=== PATIENT | male | born 1960 | race Hispanic/Latino ===

== ENCOUNTER → 2019-07-30 | Day surgery (SDC) | payer OTHER ==
[2019-07-28 16:15] LABS: BASOPHILS # (AUTO) 0.1 (0.0-0.1); BASOPHILS % 0.6 % (0.0-1.0); EOSINOPHILS # (AUTO) 0.1 (0.0-0.4); EOSINOPHILS % 0.7 % (0.0-6.0); HEMATOCRIT 42.5 % (38.2-49.6); HEMOGLOBIN 13.9 g/dL (14.0-18.0); LYMPHOCYTES % 23.5 % (18.0-39.1); MEAN CORPUSCULAR HEMOGLOBIN 30.2 pg (28-32); MEAN CORPUSCULAR HGB CONC 32.7 g/dL (31-35); MEAN CORPUSCULAR VOLUME 92.2 fL (81-99); MONOCYTES % 11.9 % (4.4-11.3); NEUTROPHILS # (AUTO) 5.4 (2.1-6.9); PLATELET COUNT 170 x10e3/uL (140-360); RED BLOOD COUNT 4.61 x10e6/uL (4.3-5.7); RED CELL DISTRIBUTION WIDTH 13.3 % (11.7-14.4)
[2019-07-28 16:26] LABS: INR 0.91; PROTHROMBIN TIME 12.7 seconds (11.9-14.5)
[2019-07-28 16:32] LABS: ALANINE AMINOTRANSFERASE 18 IU/L (0-55); ALKALINE PHOSPHATASE 101 IU/L (40-150); ANION GAP 13.9 mmol/L (8-16); BLOOD UREA NITROGEN 13 mg/dL (7-26); BUN/CREATININE RATIO 13 (6-25); CALCIUM 10.4 mg/dL (8.4-10.2); CARBON DIOXIDE 26 mmol/L (22-29); CHLORIDE 100 mmol/L (98-107); CREATININE, SERUM 0.99 mg/dL (0.72-1.25); EST GLOMERULAR FILTRATION RATE > 60 ML/MIN (60-); GLUCOSE 106 mg/dL (74-118); POTASSIUM 3.9 mmol/L (3.5-5.1); SODIUM 136 mmol/L (136-145)
[~2019-07-30] VITALS: Ht 157.5 cm; Wt 62.6 kg
[2019-07-30] VITALS (7 sets, daily range): BP systolic 126–150; BP diastolic 67–91
[~2019-07-30] MED LIST: ETODOLAC400 MG PO; FENTANYL CITRATE/PF 100MCG/2 ML INJ ONE; HEPARIN SOD (PORCINE) 1000 UNIT/ML 30ML ONE; HEPARIN SOD/SOD CHLORIDE 2,000 ML ONE; IOPAMIDOL 370 MG/ML 200 ML INFUS..BTL INJ ONE; LEFLUNOMIDE20 MG PO; LIDOCAINE HCL 2% LOCAL 20 ML VIAL ONE; METHYLPREDNISOLO4 MG PO; MIDAZOLAM HCL 2 MG/2 ML VIAL ONE; NITROGLYCERIN/D5W 200 MCG/ML 250 ML ONE; VERAPAMIL HCL 2.5 MG/ML 2 ML VIAL ONE
--- OUTSIDE RECORDS SUMMARY | 2019-07-30 06:27 | XMS REPORT | Summary of Care ---
Author Author [facility] Organization [facility] Address Unknown Phone Unavailable Care Team Providers Care [employer] Processing Supervisor Name Role Phone PCP Unavailable Reason for Referral * Radiology Services (Routine) Referred By Contact Referred To Contact Status Reason Specialty Diagnoses / Procedures Bridger Ruvalcaba MD [address] [id number] General Imaging [address] [place] [phone] Pending Radiology Diagnoses Rheumatoid arthritis with positive rheumatoid factor, involving unspecified site (HCCode) Long-term use of immunosuppressant medication 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 P rocedures DEXA BONE DENSITY SPINE AND HIP * Radiology Services (Routine) Referred By Contact Referred To Contact Status Reason Specialty Diagnoses / Procedures Bridger Ruvalcaba MD [facility] [address] [address] General Imaging [address] [place] [phone] Pending Radiology Diagnoses Rheumatoid arthritis with positive rheumatoid factor, involving unspecified site (HCCode) Long-term use of immunosuppressant medication P rocedures XR FOOT BILATERAL (COMPLETE) * Radiology Services (Routine) Referred By Contact Referred To Contact Status Reason Specialty Diagnoses / Procedures Bridger Ruvalcaba MD [address] [id number] General Imaging [address] [place] [phone] Pending Radiology Diagnoses Rheumatoid arthritis with positive rheumatoid factor, involving unspecified site (HCCode) Long-term use of immunosuppressant medication P rocedures XR HAND BILATERAL (COMPLETE) Reason for Visit * Reason Comments Left Knee Pain arthritis Encounter Details Care Team Description Date Type Department Bridger Ruvalcaba MD [address] [facility] [address] [place] [address] Left Knee Pain (arthritis) 07/07/2019 Office Visit [facility] Rheumatology [address] [facility] 8th Floor, [address] [place] [address] Allergies No Known Allergiesdocumented as of this encounter (statuses as of 07/07/2019) Medications End Date Status Medication Sig Dispensed Refills Start Date Active leflunomide (ARAVA) 20 MG Take 1 Tab by 90 Tab 3 tablet mouth daily. 9 Active etodolac (LODINE) 400 MG Take 1 Tab by 120 Tab 3 tablet mouth two 9 times daily. Active methylPREDNISolone Please take 1 30 Tab 0 (MEDROL) 4 MG tablet as needed for 9 pain 07/07/2019 Discontinued etodolac (LODINE) 400 MG 400 mg two 0 tablet times daily. 07/07/2019 Discontinued leflunomide (ARAVA) 20 MG 20 mg daily. 0 tablet 07/07/2019 Discontinued methylPREDNISolone 4 mg as 0 (MEDROL) 4 MG tablet needed. Status Hospital, Clinic, or Ordered Dose Route Frequency Start End Date Other Facility Date Administered Medication Ended methylPREDNISolone IX ONCE 07/07/20 acetate (DEPO-MEDROL) 40 19 9 MG/ML 40 mg, lidocaine 1% (10 mg/mL) 1 mLIndications: Chronic pain of left knee documented as of this encounter (statuses as of 07/07/2019) Active Problems Problem Noted Date Rheumatoid arthritis with positive rheumatoid factor (HCCode) 07/07/2019 Long-term use of immunosuppressant medication 07/07/2019 documented as of this encounter (statuses as of 07/07/2019) Social History Date Tobacco Use Types Packs/Day Years Used Never Smoker Smokeless Tobacco: Never Used Tobacco Cessation: Counseling Given: No Drinks/Week oz/Week Comments Alcohol Use Never Alcohol Habits Answer Date Recorded How often do you have a drink containing alcohol? Never 07/07/2019 How many drinks containing alcohol do you have on Not asked a typical day when you are drinking? How often do you have six or more drinks on one Not asked occasion? Sex Assigned at Date Recorded Not on file Industry Job Start Date Occupation Not on file Not on file Not on file Travel End Travel History Travel Start No recent travel history available. documented as of this encounter Last Filed Vital Signs Reading Time Taken Comments Vital Sign 161/95 07/07/2019 3:45 PM CDT Blood Pressure 80 07/07/2019 3:45 PM CDT Pulse 36.8 C (98.3 F) 07/07/2019 3:45 PM CDT Temperature 16 07/07/2019 3:45 PM CDT Respiratory Rate 97% 07/07/2019 3:45 PM CDT Oxygen Saturation - - Inhaled Oxygen Concentration 62.8 kg (138 lb 6.4 oz) 07/07/2019 3:45 PM CDT Weight 157.5 cm (5' 2") 07/07/2019 3:45 PM CDT Height 25.31 07/07/2019 3:45 PM CDT Body Mass Index documented in this encounter Patient Instructions * Patient Instructions* Bridger Ruvalcaba MD - 07/07/2019 3:45 PM CDT We will continue the Leflunomide 20 mg a day. We will continue etodolac twice a day. You can take the medrol as needed for pain but please limit this medication. We will do a steroid injection for your left knee. We will do blood work today. When you can please call to schedule xrays of your hands, feet, and bones. See me in 3 months. Continuaremos con Leflunomida 20 mg al da. Continuaremos con etodolaco dos veces al da. Puede selma el medicamento segn sea necesario para el dolor, abril limite yamile medicamento. Le haremos marisa inyeccin de esteroides en la rodilla izquierda. Haremos anlisis de denis hoy. Cuando pueda llamar para programar radiografas de mag aiden, pies y huesos. Nos vemos en 3 meses. documented in this encounter Progress Notes * Bridger Ruvalcaba MD - 07/07/2019 3:45 PM CDT RHEUMATOLOGY CLINIC HISTORY OF PRESENT ILLNESS: Sorin Andres is a 58 y.o. year old monegasque speaking male with a past medical history of HLD off statins and RA on Arava who presents for evaluation of joint pain. He was previously seen by Dr. Orr for RA on Arava 20 mg, NSAID BID, and medro l 4 mg PRN. He was diagnosed with seropositive RF/CCP rheumatoid arthritis in 2005 due to ch ronic pain to his shoulders. He soon developed pain to his MCPs, elbows, knees, toes, and hips. He was previously on MTX but has recently been on Arava for the past few years. He is also on a NSAID BID and takes Medrol 4 mg 2x/week for extreme pain. At this time he denies much pain except in his left knee (posterior>anterior) and his bilateral 5th DIP joints. Otherwise he has no pain or stiffness. In the 5th DIP joints he has stiffness that last 24-48 hours and then comes back . The pain does improve with the medrol 4 mg a day. He denies any back pain REVIEW OF SYSTEMS 12 pt ROS negative unless noted above PAST MEDICAL HISTORY Past Medical History: Diagnosis Date Long-term use of immunosuppressant medication Rheumatoid arthritis (HCCode) PAST SURGICAL HISTORY No past surgical history on file. MEDICATIONS Etodolac 400 mg BID Arava 20 mg daily Medrol 4 mg PRN No current outpatient medications on file prior to visit. No current facility-administered medications on file prior to visit. ALLERGIES Allergies as of 07/07/2019 (No Known Allergies) FAMILY HISTORY FH: Family History Problem Relation Name Age of Onset Rheumatoid Arthritis Maternal Grandfather SOCIAL HISTORY Social History Tobacco Use Smoking status: Never Smoker Smokeless tobacco: Never Used Substance Use Topics Alcohol use: Never Frequency: Never Drug use: Not on file PHYSICAL EXAM VS : Blood pressure (!) 161/95, pulse 80, temperature 98.3 F (36.8 C), resp. rate 16, height 5' 2" (1.575 m), weight 138 lb 6.4 oz (62.8 kg), SpO2 97 %. GENERAL: NAD, pleasant, healthy appearing HEENT: sclera anicteric, OP clear, EOMI NECK: supple no LAD, no TM, FROM CV: RRR no mgr CHEST: CTA bilateral with no rales no wheezes, equal inspiratory movement bilate rally ABD: soft NT EXT: no edema Neuro: grossly intact, normal gait, motor exam with nl strength in UE and LE sym metrically SKIN no rash, no nail pits, no onycholysis, no nodules MUSCULOSKELETAL EXAM : DIP- + Heberdens nodes, + erythema and tenderness to bilateral 5th PIP joints PIP - ++ Bouchards nodes,no synovitis, nontender (bilateral) MCP - neg squeeze, no synovitis or effusion, Bunel's test neg, nontender (bilate ral) WRIST - FROM to palmar and dorsi flexion, no effusion, no synovitis ELBOWS - no effusion, no synovitis, no nodules or tophi, FROM, no flexion contra cture, nontender, no tendonitis(bilateral) SHOULDERS - FROM nontender (bilateral) KNEES - Right knee with crepitus Left knee warm with crepitus, effusion, and tenderness to the posterior knee, no overt savage cyst noted ANKLES no synovitis or effusion, FROM in inv/eversion, dorsi/plantar, nontender (bilateral) MTPs neg squeeze tenderness, no synovitis (bilateral) ADDITIONAL DATA Labs and Xrays were reviewed. 12/2018 Cr 0.89 Glucose 152 Albumin 4.5 AST/ALT 18/18 WBC 9.6 Hgb 13.6 Plt 212 CRP 6.3 mg/L normal ESR 39 H Historical labs C3 normal C4 normal RF 220 H CCP >250 H Uric acid 5 HLAB27 negative NOEMI positive, homogenous 1:80 dsDNA negative Sm/FACING SLITTER negative IMPRESSION AND PLAN Sorin Andres is a 58 y.o.monegasque speaking male with a past medical history of HLD off statins and RA on Arava who presents to establish care. Based on his high titer RF/CCP, elevated inflammatory markers, and history of mu ltiple joint involvement I suspect he meets the 2010 ACR criteria for Rheumatoid Arthritis. He has not had any recent xrays which I will obtain today to evalua te for erosions. Overall his symptoms and exam do indicated low disease activity or remission. I suspect some of his joints including his DIPs could be OA related pain. I have asked him to use less medrol to see how he feels. His left knee however is warm and swollen which makes me think this is inflammat ory. Due to the isolated joint flare I performed a left knee CSI injection. I will continue his Arava 20 mg a day and etodolac 400 mg BID. I have given him a limited supply of medrol 4 mg to use as needed for flares. Due to his detention use of steroids I will order a DEXA scan. He will get safety labs today and repeat every 3 months Follow up in 3 months Bridger Ruvalcaba MD Department of Medicine Section of Immunology, Allergy and Rheumatology Orders Placed This Encounter Procedures X-ray Hand Bilateral (Complete) X-ray Foot Bilateral (Complete) DEXA Bone Density Spine and Hip CBC and differential Comprehensive metabolic panel Sedimentation rate, automated C-reactive protein documented in this encounter Plan of Treatment Care Team Description Date Type Specialty Bridger Ruvalcaba MD [address] [place] [id number] 10/07/2019 Office Visit Rheumatology Order Schedule Name Type Priority Associated Diagnoses Ordered: 07/07/2019 CBC W/AUTO DIFF WITH Lab Routine Rheumatoid arthritis with PLATELETS positive rheumatoid factor, involving unspecified site (HCCode) Long-term use of immunosuppressant medication Ordered: 07/07/2019 COMPREHENSIVE METABOLIC Lab Routine Rheumatoid arthritis with PANEL positive rheumatoid factor, involving unspecified site (HCCode) Long-term use of immunosuppressant medication Ordered: 07/07/2019 SEDIMENTATION RATE Lab Routine Rheumatoid arthritis with MODIFIED WESTERGREN positive rheumatoid factor, involving unspecified site (HCCode) Long-term use of immunosuppressant medication Ordered: 07/07/2019 C-REACTIVE PROTEIN Lab Routine Rheumatoid arthritis with positive rheumatoid factor, involving unspecified site (HCCode) Long-term use of immunosuppressant medication 1 Occurrences starting 07/07/2019 until 07/06/2020 XR HAND BILATERAL Imaging Routine Rheumatoid arthritis with (COMPLETE) positive rheumatoid factor, involving unspecified site (HCCode) Long-term use of immunosuppressant medication 1 Occurrences starting 07/07/2019 until 07/06/2020 XR FOOT BILATERAL Imaging Routine Rheumatoid arthritis with (COMPLETE) positive rheumatoid factor, involving unspecified site (HCCode) Long-term use of immunosuppressant medication 1 Occurrences starting 07/07/2019 until 07/07/2020 DEXA BONE DENSITY SPINE Imaging Routine Rheumatoid arthritis with AND HIP positive rheumatoid factor, involving unspecified site (HCCode) Long-term use of immunosuppressant medication nursing home (current) use of systemic steroids Health Maintenance Due Date Last Done Comments COLON CANCER SCREENIN1959 COLONOSCOPY TETANUS SHOT (ADULT) 12/03/1974 BMI FOLLOW UP PLAN 12/03/1977 HEPATITIS C SCREENING 12/03/1977 HIV SCREENING 12/03/1977 FLU VACCINE > 6 MONTHS 05/06/2019 documented as of this encounter Results Not on filedocumented in this encounter Visit Diagnoses Diagnosis Rheumatoid arthritis with positive rheumatoid factor, involving unspecified site (HCCode) - Primary Long-term use of immunosuppressant medication Encounter for long-term (current) use of other medications 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 Chronic pain of left knee Pain in joint, lower leg Secondary hypertension Other secondary hypertension, unspecified documented in this encounter Administered Medications Action Date Dose Rate Site Medication Order MAR Action 07/07/2019 4:12 PM CDT Left Knee methylPREDNISolone acetate (DEPO-MEDROL) Given by 40 MG/ML 40 mg, lidocaine 1% (10 mg/mL) 1 mL Intra-articular, ONCE, 1 dose, 07/07/19 at 1615, Left knee, documented in this encounter Insurance Type Payer Benefit Subscriber ID Effective Phone Address Plan / Dates Group [facility] [employer] xxxxxxxxxxx 2010-P [address] [id number] PLUS - JAMAAL ACKERMAN [id number] documented as of this encounter
--- NOTE | 2019-07-30 09:00 | NUR ---
0900a Received Rm #9 CL bedside report received from MENDEZ Cárdenas. Alert oriented and appropriate, PERRLA, respirations even and unlabored to room air. Pulses x4 extremities equal and strong. Pedal pulses PT/DP X4 palpable. Cap fill brisk < 3 sec. TR band to rt intact w/o NO gross issues pain,pallor,pressure or dysrhythmia. Air release at 945am. Skin warm and dry integrity appears D/I. IV 20g to left hand, presents healthy w/o s/s of infiltration or complaint. Abdomen soft and supple. pt offered toileting, denies need to urinate or defecate. No personal affects with patient. Family daughter at bedside.(Jazz [phone]. Pt and family verbalizes understanding of POC. Currently w/o complaint of pain or need. Back to baseline Orientation.No fix LHC for dc today approximately 1100am post Tr-band stasis to site. momo/mendez
--- NOTE | 2019-07-30 09:30 | NUR ---
0930 RADIAL Compression removal: Initial Cuff volume 12 cc 930 -2 cc Removed No hematoma/bleeding noted with normal neurovascular function. 0945 -5 cc Removed No hematoma/ bleeding noted with normal neurovascular function. 1000 -5cc Removed No hematoma/bleeding noted with normal neurovascular function. c Air removal completed. Stasis achieved sterile 2x2,Tegaderm, Coban dressing No hematoma, bleeding noted with normal neurovascular function. Wrist splint in place. Pt instructed on POC. Ds/Rn
--- NOTE | 2019-07-30 10:15 | NUR ---
1030 Pt meets DC criteria.Back to baseline orientation Rt TR band site assessed for s/s of complication and presence of hematoma. Skin warm, dry, no discolor, and pulses present. IV removed from left hand. Distal tip appears intact. VS WNL. Pt denies pain, sob, or need at this time. Family at bs Review of discharge paperwork and follow up instructions. verbalized understanding. Pt to wheelchair and transported to front of hospital. Transferred to private vehicle under own strength w/o incident with DC paperwork in hand. - ds/rn
--- NOTE | 2019-07-30 20:15 | Operative Report ---
DATE OF PROCEDURE: 07/30/2019 SURGEON: Corry Slade MD PROCEDURE TITLE: Cardiac Catheterization. PROCEDURES PERFORMED: 1. Selective coronary angiography x2. 2. Left heart catheterization. PROCEDURE LEAF STRIPPER: Corry Slade MD. SEDATION: 1. Midazolam 2 mg. 2. Fentanyl 50 mcg. INFORMED CONSENT: Informed consent was obtained and documented in the chart. INDICATION: Abnormal nuclear stress test. PROCEDURE IN DETAIL: The patient was brought to the cardiac catheterization laboratory in a fasting state after written informed consent was obtained. Bilateral groins and right wrist were prepped and draped in the usual sterile fashion. A 1% lidocaine was used to achieve local anesthesia over the right radial artery. A micropuncture needle was used to access the right radial artery and a 5-Serbian long sheath was placed via modified Seldinger technique. The 5-Serbian TIG was inserted and advanced into the ascending aorta over the J-wire. The left main coronary artery was cannulated under fluoroscopic guidance foot. Selective coronary angiography was performed. Attention was then turned to the right coronary artery. The right coronary artery could not be cannulated with the TIG. The TIG was withdrawn and a 5-Serbian 3DRC was inserted and advanced into the ascending aorta over the J-wire. The right coronary artery was successfully cannulated under fluoroscopic guidance. Selective coronary angiography was performed. The 3DRC was then repositioned and advanced into the left ventricle over the J-wire. Hemodynamic measurements were obtained. The 3DRC was removed. The sheath was then removed and hemostasis was achieved with TR band. There were no immediate procedure complications. FINDINGS: 1. The left main artery bifurcates into the LAD and circumflex systems, codominant system. The LAD is a moderate caliber vessel that wraps around the apex. There were luminal irregularities noted. The circumflex is a large caliber vessel, which gives rise to large OM1 and OM2. There were luminal irregularities noted in the circumflex system. 2. The right coronary artery is a small caliber vessel, which gives rise to the PDA. Luminal irregularities were present. 3. LV 110/6 mmHg. 4. LVEDP 21 mmHg. 5. Aortic pressure 124/71. IMPRESSION: Mild coronary artery disease. RECOMMENDATIONS: Aggressive risk factor modification. Corry Slade MD ABS/MODL /[id number]
== END | disposition home or self-care (01) ==
LOC: CATH LAB 06:21
PROVIDERS: ATTEND Internal Medicine
DX: I25.10 Atherosclerotic heart disease of native coronary artery without angina pectoris (principal); Z01.812 Encounter for preprocedural laboratory examination; R94.31 Abnormal electrocardiogram [ECG] [EKG]; R03.0 Elevated blood-pressure reading, without diagnosis of hypertension; M19.90 Unspecified osteoarthritis, unspecified site
CPT/HCPCS: 36415; 80053; 85025; 85610; 93458; C1887; J1644; J2001; J2250; J3010; Q9967; 99152; 99153